=== PATIENT | male | born 1965 | race Two or more races ===

== ENCOUNTER 2021-03-09 11:32 | Emergency (ER) | payer OTHER ==
[~2021-03-09] VITALS: Ht 175.3 cm; Wt 32.2 kg
== END 2021-03-09 17:22 | disposition home or self-care (01) ==
LOC: ER 11:32
DX: K59.00 Constipation, unspecified (principal); R42 Dizziness and giddiness; Z03.818 Encounter for observation for suspected exposure to other biological agents ruled out

== ENCOUNTER 2021-03-24 15:31 | Emergency (ER) | payer OTHER ==
[~2021-03-24] VITALS: Ht 175.3 cm; Wt 54.4 kg
== END 2021-03-24 18:30 | disposition home or self-care (01) ==
LOC: ER 15:31
DX: B34.9 Viral infection, unspecified (principal); Z20.822 Contact with and (suspected) exposure to COVID-19